=== PATIENT | female | born 2000 | race Caucasian/White ===

== ENCOUNTER 2018-08-11 02:48 | Emergency (ER) | payer OTHER ==
--- NOTE | 2018-08-11 04:06 | ER Document Report ---
ED GI/ - General Chief Complaint: Urinary Problem Stated Complaint: URINARY ISSUES Time Seen by Provider: 08/11/18 03:12 Notes: Patient is a 18-year-old female that comes to the emergency department for chief complaint of painful urination, pain in her general pelvic area and over the bladder, and nausea. She states this is worsened over the past week, she states that it did begin with itching and then this developed the pain. She states she was on a series of antibiotics including penicillin, amoxicillin, and then Augmentin, followed by azithromycin all for strep/upper respiratory infections. Afterwards she did take 2 doses of fluconazole. She denies any surgeries other than appendectomy, she denies any medical history otherwise. She is sexually active with her significant other. TRAVEL OUTSIDE OF THE [place] IN LAST 30 DAYS: No - Related Data Allergies/Adverse Reactions: No Known Allergies Allergy (Unverified 08/11/18 04:28) Past Medical History - General Information source: Patient - Social History Smoking Status: Never Smoker Frequency of alcohol use: None Drug Abuse: None Lives with: Family Family History: Reviewed & Not Pertinent Patient has suicidal ideation: No Patient has homicidal ideation: No - Medical History Medical History: Negative Renal/ Medical History: Denies: Hx Peritoneal Dialysis Surgical Hx: Negative - Immunizations Immunizations up to date: Yes Hx Diphtheria, Pertussis, Tetanus Vaccination: Yes Review of Systems - Review of Systems Constitutional: No symptoms reported EENT: No symptoms reported Cardiovascular: No symptoms reported Respiratory: No symptoms reported Gastrointestinal: See HPI Genitourinary: See HPI Female Genitourinary: See HPI Musculoskeletal: No symptoms reported Skin: No symptoms reported Hematologic/Lymphatic: No symptoms reported Neurological/Psychological: No symptoms reported Physical Exam - Vital signs Vitals: Temp Pulse Resp BP Pulse Ox 99.1 F 105 H 20 122/74 97 08/11/18 02:53 08/11/18 02:53 08/11/18 02:53 08/11/18 02:53 08/11/18 02:53 - Notes Notes: GENERAL: Alert, interacts well. No acute distress. HEAD: Normocephalic, atraumatic. EYES: Pupils equal, round, and reactive to light. Extraocular movements intact. ENT: Oral mucosa moist, tongue midline. NECK: Full range of motion. Supple. Trachea midline. LUNGS: Clear to auscultation bilaterally, no wheezes, rales, or rhonchi. No respiratory distress. HEART: Regular rate and rhythm. No murmur ABDOMEN: Soft, non-tender. Non-distended. Bowel sounds present in all 4 quadrants. GENITOURINARY: Small amount of vaginal discharge, no bleeding, no cervical motion tenderness, external exam without concerning findings. RN Griselda present during exam. EXTREMITIES: Moves all 4 extremities spontaneously. No edema, normal radial and dorsalis pedis pulses bilaterally. No cyanosis. BACK: no cervical, thoracic, lumbar midline tenderness. No saddle anesthesia, normal distal neurovascular exam. NEUROLOGICAL: Alert and oriented x3. Normal speech. [cranial nerves II through XII grossly intact]. PSYCH: Normal affect, normal mood. SKIN: Warm, dry, normal turgor. No rashes or lesions noted. Course - Re-evaluation Re-evalutation: There was a scant amount of discharge on pelvic exam, no cervical motion tenderness, unremarkable otherwise. There is suprapubic tenderness but abdominal exam is otherwise unremarkable. Vital signs unremarkable. Patient is well-appearing. Urinalysis does indicate infection although there was some contamination. Patient does have dysuria specifically. Wet mount strangely completely negative, I suspect there was too much saline and this was resulted in anyway, however since she does not have large amount of discharge, she does not have inflamed cervix or cervical motion tenderness I do not suspect pelvic infection either way. Discussed treatment for UTI, hydration, follow-up, and return precautions in detail. Patient states understanding and agreement. - Vital Signs Vital signs: Temp Pulse Resp BP Pulse Ox 99.3 F 85 15 125/85 98 08/11/18 06:33 08/11/18 06:33 08/11/18 06:33 08/11/18 06:33 08/11/18 06:33 - Laboratory Laboratory results interpreted by me: 08/11/18 04:40 Urine Ketones TRACE H Ur Leukocyte Esterase LARGE H Discharge - Discharge Clinical Impression: Dysuria, Lower abdominal pain Condition: Stable Disposition: HOME, SELF-CARE Additional Instructions: Your evaluation does show a urinary tract infection. Remaining evaluation does not show any concerning abnormalities. Take Keflex antibiotics as prescribed to completion. Take the Diflucan after completion of the antibiotic to avoid another yeast infection. Follow-up with primary care. Return to the emergency department for any concerning symptoms including severe abdominal pain, vomiting, fever of 100.4 or greater, or any other concerning symptoms Prescriptions: Cephalexin Monohydrate [Keflex 500 mg Capsule] 500 mg PO BID #10 capsule Fluconazole [Diflucan] 150 mg PO ONCE PRN #1 tablet PRN Reason: Referrals: WERO ROSS MD [Primary Care Provider] - Follow up as needed
[2018-08-11 05:09] LABS: APPEARANCE,URINE SLIGHTLY-CLOUDY; BILIRUBIN,URINE NEGATIVE (NEGATIVE); COLOR,URINE YELLOW; GLUCOSE, URINE NEGATIVE (NEGATIVE); KETONES,URINE TRACE mg/dL (NEGATIVE); LEUKOCYTE ESTERASE,URINE LARGE (NEGATIVE); NITRITE,URINE NEGATIVE (NEGATIVE); PROTEIN,URINE NEGATIVE (NEGATIVE); URINE SPECIFIC GRAVITY 1.011; UROBILINOGEN,URINE NEGATIVE mg/dL (<2.0)
[2018-08-11 05:22] LABS: RBCS (WET MOUNT) NO RBCS SEEN; T.VAGINALIS (WET MOUNT) NO TRICHOMONAS SEEN; WBCS (WET MOUNT) NO WBCS SEEN; YEAST (WET MOUNT) NO YEAST SEEN
[2018-08-11] MEDS ORDERED: CEPHALEXIN 500 MG CAPSULE PO ONE (05:58)
[2018-08-11] MEDS ORDERED: PHENAZOPYRIDINE HCL 200 MG TABLET PO ONE (05:58)
[2018-08-11 06:35] VITALS: BP 125/85
[2018-08-11 06:45] LABS: CHLAM PCR NOT DETECTED (NOT DETECT); GON PCR NOT DETECTED (NOT DETECT)
== END 2018-08-11 06:33 | disposition home or self-care (01) ==
LOC: ER 02:48
DX: R30.0 Dysuria (principal); R10.30 Lower abdominal pain, unspecified; R10.2 Pelvic and perineal pain; R11.0 Nausea; R39.198 Other difficulties with micturition
CPT/HCPCS: 99283; 87086; 87210; 81025; 87088; 81001; 87186; 87491; 87591; J3490

== ENCOUNTER → 2019-03-29 | Outpatient (CLI) | payer OTHER ==
--- NOTE | 2019-03-29 11:33 | RADIOLOGY REPORT (SQ) ---
EXAM DESCRIPTION: L SPINE WHOLE COMPLETED DATE/TIME: 03/29/2019 11:14 am REASON FOR STUDY: LOW BACK PAIN (M54.5) M54.5 LOW BACK PAIN COMPARISON: None. NUMBER OF VIEWS: Five views including obliques. TECHNIQUE: AP, lateral, oblique, and sacral radiographic images acquired of the lumbar spine. LIMITATIONS: None. FINDINGS: MINERALIZATION: Normal. SEGMENTATION: Normal. No transitional anatomy. ALIGNMENT: Normal. VERTEBRAE: Maintained height. No fracture or worrisome bone lesion. DISCS: Degenerative changes T11-12. POSTERIOR ELEMENTS: Pedicles and facets are intact. No pars defect or posterior arch defects. HARDWARE: None in the spine. PARASPINAL SOFT TISSUES: Normal. PELVIS: Intact as visualized. No fractures or worrisome bone lesions. SI joints intact. OTHER: No other significant finding. IMPRESSION: Degenerative changes at T11-12. Lumbar spine unremarkable. TECHNICAL DOCUMENTATION: JOB ID: [id number] [employer]- All Rights Reserved Reading location - IP/workstation name: [email or web address]
== END ==
LOC: RAD 10:49
PROVIDERS: ATTEND Nurse Practitioner Family
DX: M54.5 Low back pain (principal)
CPT/HCPCS: 72110

== ENCOUNTER → 2020-11-13 | Outpatient (CLI) | payer OTHER ==
--- NOTE | 2020-11-13 12:34 | RADIOLOGY REPORT (SQ) ---
EXAM DESCRIPTION: L SPINE WHOLE IMAGES COMPLETED DATE/TIME: 11/13/2020 12:15 pm REASON FOR STUDY: LOW BACK PAIN M54.6 PAIN IN THORACIC SPINE M54.41 LUMBAGO WITH SCIATICA, RIGHT S JELENA COMPARISON: 03/29/2019. NUMBER OF VIEWS: Five views including obliques. TECHNIQUE: AP, lateral, oblique, and sacral radiographic images acquired of the lumbar spine. LIMITATIONS: None. FINDINGS: MINERALIZATION: Normal. SEGMENTATION: Normal. No transitional anatomy. ALIGNMENT: Normal. VERTEBRAE: Maintained height. No fracture or worrisome bone lesion. DISCS: Preserved height. No significant osteophytes or end plate irregularity. POSTERIOR ELEMENTS: Pedicles and facets are intact. No pars defect or posterior arch defects. HARDWARE: None in the spine. PARASPINAL SOFT TISSUES: Normal. PELVIS: Intact as visualized. No fractures or worrisome bone lesions. SI joints intact. OTHER: No other significant finding. IMPRESSION: NORMAL 5 VIEW LUMBAR SPINE. TECHNICAL DOCUMENTATION: JOB ID: [id number] [employer]- All Rights Reserved Reading location - IP/workstation name: [email or web address]
--- NOTE | 2020-11-13 12:36 | RADIOLOGY REPORT (SQ) ---
EXAM DESCRIPTION: T SPINE AP/LAT IMAGES COMPLETED DATE/TIME: 11/13/2020 12:15 pm REASON FOR STUDY: THORACIC BACK PAIN M54.6 PAIN IN THORACIC SPINE M54.41 LUMBAGO WITH SCIATICA, RI GHT SIDE COMPARISON: None. NUMBER OF VIEWS: Two views. TECHNIQUE: AP and lateral radiographic images acquired of the thoracic spine. LIMITATIONS: None. FINDINGS: MINERALIZATION: Normal. ALIGNMENT: Normal. No scoliosis. VERTEBRAE: No fracture or bone lesion. Maintained height, normal segmentation. DISCS: Disc space narrowing with osteophytes at T11-T12. HARDWARE: None in the spine. MEDIASTINUM AND SOFT TISSUES: Normal heart size and aortic contour. No soft tissue abnormality. VISUALIZED LUNG WHITFIELD: Clear. OTHER: No other significant finding. 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 SIMILAR APPEARANCE TO PREVIOUS LUMBAR SPINE X-RAY FROM MARCH 2019. NO ACUTE FINDINGS. TECHNICAL DOCUMENTATION: JOB ID: [id number] [email or web address]- All Rights Reserved Reading location - IP/workstation name: [email or web address]
== END ==
LOC: RAD 11:08
PROVIDERS: ATTEND Nurse Practitioner Adult Health
DX: M51.34 Other intervertebral disc degeneration, thoracic region (principal); M54.41 Lumbago with sciatica, right side
CPT/HCPCS: 72070; 72110